=== PATIENT | female | born 1995 | race American Indian/Alaskan Native ===

== ENCOUNTER 2022-03-03 09:15 | Emergency (ER) | payer SELFPAY ==
[2022-03-03 09:33] VITALS: BP 118/77
[2022-03-03 12:13] LABS: Hematocrit 39.1 % (30.3-42.9); Mean Corpuscular HGB Conc 33 % (30-34); Mean Corpuscular Volume 94 fl (79-97); Platelet Count 325 K/mm3 (140-440); Red Blood Count 4.18 M/mm3 (3.65-5.03); Red Cell Distribution Width 13.3 % (13.2-15.2)
[2022-03-03 12:31] LABS: Bilirubin,Urine NEG (Negative); Blood,Urine NEG (Negative); Color,Urine Yellow (Yellow); Protein,Urine <15 mg/dL mg/dL (Negative); Urobilinogen,Urine < 2.0 mg/dL (<2.0)
[2022-03-03 12:32] LABS: RBC,Urine < 1.0 /HPF (0.0-6.0)
[2022-03-03 12:35] LABS: Alanine Aminotransferase 17 units/L (7-56); Albumin 4.3 g/dL (3.9-5); Blood Urea Nitrogen 7 mg/dL (7-17); Calcium 9.4 mg/dL (8.4-10.2); Hemolysis Index 7
[2022-03-03 12:36] LABS: BUN/Creatinine Ratio 12
--- NOTE | 2022-03-03 13:42 | Ultrasound Report ---
ULTRASOUND OBSTETRIC INDICATION / CLINICAL INFORMATION: Abdominal pain. - Clinical Gestational Age (GA) in weeks, days: 4, 6. TECHNIQUE: Transabdominal and Transvaginal. COMPARISON: None available. FINDINGS: GESTATIONAL SAC: Tiny rounded ovoid intrauterine fluid collection measuring 5 weeks 1 day. YOLK SAC: None. EMBRYO/FETUS: None. - [place]-Rump Length = cm = weeks, days - Heart Rate, beats per minute (if present) = UTERUS: The endometrial stripe measures 2.3 cm AP. There is a 5.5 mm nabothian cysts in the cervix. ADNEXA: The right ovary measures 3.7 x 2.3 x 2.0 cm and the left ovary 2.6 x 1.6 x 2.2 cm. There is n o evidence of an extraovarian mass. FREE FLUID: Mild amount in the cul-de-sac. ADDITIONAL FINDINGS: None. IMPRESSION: 5 week 1 day saclike structure in the endometrium without a pole or yolk sac. There is no evidence of an extraovarian mass to suggest ectopic . The findings are characteristic of an intrauterine of uncertain viability. A follow-up ultrasound in 7-10 days may be help ful in further evaluation. Signer Name: Orlando Rodrigues MD Signed: 03/03/2022 1:37 PM Workstation Name: [id number]
--- NOTE | 2022-03-03 13:42 | Ultrasound Report ---
ULTRASOUND OBSTETRIC INDICATION / CLINICAL INFORMATION: Abdominal pain. - Clinical Gestational Age (GA) in weeks, days: 4, 6. TECHNIQUE: Transabdominal and Transvaginal. COMPARISON: None available. FINDINGS: GESTATIONAL SAC: Tiny rounded ovoid intrauterine fluid collection measuring 5 weeks 1 day. YOLK SAC: None. EMBRYO/FETUS: None. - [place]-Rump Length = cm = weeks, days - Heart Rate, beats per minute (if present) = UTERUS: The endometrial stripe measures 2.3 cm AP. There is a 5.5 mm nabothian cysts in the cervix. ADNEXA: The right ovary measures 3.7 x 2.3 x 2.0 cm and the left ovary 2.6 x 1.6 x 2.2 cm. There is n o evidence of an extraovarian mass. FREE FLUID: Mild amount in the cul-de-sac. ADDITIONAL FINDINGS: None. IMPRESSION: 5 week 1 day saclike structure in the endometrium without a pole or yolk sac. There is no evidence of an extraovarian mass to suggest ectopic . The findings are characteristic of an intrauterine of uncertain viability. A follow-up ultrasound in 7-10 days may be help ful in further evaluation. Signer Name: Orlando Rodrigues MD Signed: 03/03/2022 1:37 PM Workstation Name: [id number]
--- NOTE | 2022-03-03 13:51 | Emergency Department Report ---
ED Abdominal Pain HPI - General Chief Complaint: Urogenital-Female Stated Complaint: ABD/BACK PAIN Time Seen by Provider: 03/03/22 10:55 Source: patient Mode of arrival: Ambulatory Limitations: No Limitations - History of Present Illness Initial Comments: 26-year-old black female with no past medical history presents to the emergency department for evaluation of 2-day history of abdominal and pelvic pain. She denies fever, dysuria, nausea, vomiting, and diarrhea. She states that she is a few days late on her menstrual cycle and had a positive home test. She states that pain is 6 out of 10 and constant. MD Complaint: abdominal pain -: Gradual, days(s) (2) Location: LLQ, RLQ Radiation: none Migration to: no migration Severity scale (0 -10): 6 Quality: aching Consistency: constant Associated Symptoms: denies: nausea, vomiting, diarrhea, fever, chills, dysuria, hematemesis, hematochezia, melena, hematuria, anorexia, syncope - Related Data LMP Date: 01/28/22 Home Medications Medication Instructions Recorded Confirmed Last Taken No Known Home Medications [No 06/07/17 06/07/17 Unknown Reported Home Medications] Allergies Allergy/AdvReac Type Severity Reaction Status Date / Time No Known Allergies Allergy Unverified 06/07/17 23:45 ED Review of Systems ROS: Stated complaint: ABD/BACK PAIN Other details as noted in HPI Comment: All other systems reviewed and negative Constitutional: denies: chills, fever, malaise, weakness Eyes: denies: vision change ENT: denies: congestion Respiratory: denies: cough, shortness of breath Cardiovascular: denies: chest pain, palpitations Gastrointestinal: abdominal pain. denies: nausea, vomiting, diarrhea, hematemesis, melena, hematochezia Genitourinary: denies: urgency, dysuria, frequency, hematuria, discharge, abnormal menses, dyspareunia Musculoskeletal: denies: back pain Skin: denies: rash, lesions Neurological: denies: headache, weakness ED Past Medical Hx - Past Medical History Previous Medical History?: No - Surgical History Past Surgical History?: No - Social History Smoking Status: Never Smoker - Medications Home Medications: Home Medications Medication Instructions Recorded Confirmed Last Taken Type No Known Home Medications [No 06/07/17 06/07/17 Unknown History Reported Home Medications] ED Physical Exam - General Limitations: No Limitations General appearance: alert, in no apparent distress - Head Head exam: Present: atraumatic, normocephalic - Eye Eye exam: Present: normal appearance. Absent: scleral icterus, conjunctival injection, periorbital swelling, periorbital tenderness - Neck Neck exam: Present: normal inspection, full ROM. Absent: tenderness, lymphadenopathy - Respiratory Respiratory exam: Present: normal lung sounds bilaterally. Absent: respiratory distress, wheezes, rales, rhonchi, stridor, chest wall tenderness - Cardiovascular Cardiovascular Exam: Present: regular rate, normal heart sounds - GI/Abdominal GI/Abdominal exam: Present: soft, tenderness (Bilateral lower quadrants and left upper quadrant.), normal bowel sounds. Absent: distended, guarding, rebound, rigid - Extremities Exam Extremities exam: Present: normal inspection, normal capillary refill. Absent: pedal edema, joint swelling, calf tenderness - Back Exam Back exam: Present: normal inspection. Absent: CVA tenderness (R), CVA tenderness (L), vertebral tenderness - Neurological Exam Neurological exam: Present: alert, oriented X3, normal gait - Psychiatric Psychiatric exam: Present: normal affect, normal mood - Skin Skin exam: Present: warm, dry, intact, normal color ED Course Vital Signs 03/03/22 09:31 Temperature 98.9 F Pulse Rate 88 Respiratory 14 Rate Blood Pressure 118/77 O2 Sat by Pulse 100 Oximetry ED Medical Decision Making - Lab Data Result diagrams: 03/03/22 11:44 03/03/22 11:44 - Radiology Data Radiology results: report reviewed, image reviewed ultrasound: FINDINGS: GESTATIONAL SAC: Tiny rounded ovoid intrauterine fluid collection measuring 5 weeks 1 day. YOLK SAC: None. EMBRYO/FETUS: None. - [place]-Rump Length = cm = weeks, days - Heart Rate, beats per minute (if present) = UTERUS: The endometrial stripe measures 2.3 cm AP. There is a 5.5 mm nabothian cysts in the cervix. ADNEXA: The right ovary measures 3.7 x 2.3 x 2.0 cm and the left ovary 2.6 x 1.6 x 2.2 cm. There is no evidence of an extraovarian mass. FREE FLUID: Mild amount in the cul-de-sac. ADDITIONAL FINDINGS: None. IMPRESSION: 5 week 1 day saclike structure in the endometrium without a pole or yolk sac. There is no evidence of an extraovarian mass to suggest ectopic . The findings are characteristic of an intrauterine of uncertain viability. A follow-up ultrasound in 7-10 days may be helpful in further evaluation. - Medical Decision Making 26-year-old black female with no past medical history presents to the emergency department for evaluation of 2-day history of abdominal and pelvic pain. She denies fever, dysuria, nausea, vomiting, and diarrhea. She states that she is a few days late on her menstrual cycle and had a positive home test. She states that pain is 6 out of 10 and constant Ultrasound positive for early IUP at 5 weeks 1 day with no pole noted, and no signs of ectopic . Urine negative for UTI, CBC and CMP with no gross abnormalities noted. Patient will be discharged home and advised to follow-up with [facility] for further evaluation and management of care. She is advised to return to the emergency department as needed. She verbalizes understanding of and agreement with plan of care. Critical care attestation.: If time is entered above; I have spent that time in minutes in the direct care of this critically ill patient, excluding procedure time. ED Disposition Clinical Impression: Qualifiers: Weeks of gestation: less than 8 weeks Qualified Code(s): Z3A.01 - Less than 8 weeks gestation of Disposition: 01 HOME / SELF CARE / HOMELESS Is pt being admited?: No Does the pt Need Aspirin: No Condition: Stable Instructions: Care, First Trimester of , [id number] Additional Instructions: Increase intake of noncaffeinated fluids. Follow-up with [facility] in 7 to 10 days for further evaluation and management. Return to the emergency department as needed. Referrals: [facility] [Provider Group] - 3-5 Days [facility] [Provider Group] - 3-5 Days [facility] [Provider Group] - 3-5 Days [facility] [Provider Group] - 3-5 Days Time of Disposition: 13:54
== END 2022-03-03 14:21 | disposition home or self-care (01) ==
LOC: ED 09:15
DX: O26.891 Other specified pregnancy related conditions, first trimester (principal); R10.31 Right lower quadrant pain; R10.32 Left lower quadrant pain; R10.2 Pelvic and perineal pain; Z3A.01 Less than 8 weeks gestation of pregnancy
CPT/HCPCS: 36415; 76801; 76817; 80053; 81001; 84702; 85027; 99284